=== PATIENT | female | born 1980 | race Caucasian/White ===

== ENCOUNTER 2018-08-10 08:14 | Emergency (ER) | payer MEDICAID, OTHER ==
[~2018-08-10] VITALS: Ht 165.1 cm; Wt 67.0 kg
[2018-08-10] MEDS ORDERED: ONDANSETRON 2MG/ML, 2ML ONE ×2 (08:49→12:25)
[2018-08-10] MEDS ORDERED: HYDROmorphone 2 MG/ML, 1ML ONE ×4 (08:49→12:32)
[2018-08-10] MEDS: HYDROmorphone 2 MG/ML, 1ML IVPush PRN ×2 (08:52→10:01)
[2018-08-10] MEDS ORDERED: ALBU90AE INH (08:54)
[2018-08-10] MEDS ORDERED: TOPI200T25 PO (08:54)
[2018-08-10] MEDS ORDERED: PARO10TA3 PO (08:54)
[2018-08-10] MEDS ORDERED: ZOLM2.5S INH (08:55)
[2018-08-10] MEDS ORDERED: MULT-516 PO (08:56)
[2018-08-10] MEDS ORDERED: SODIUM CHLORIDE FLUSH 10ML SYR IVF ONE (09:00)
[2018-08-10] MEDS ORDERED: ONDANSETRON 2MG/ML, 2ML IVPush ONE (09:00)
--- NOTE | 2018-08-10 09:07 | NUR ---
PIV STARTED AND BLOOD DRAWN. PATIENT MEDICATED WITH ZOFRAN AND DILAUDID. CONTINUOUS SPO2 APPLIED. BP CUFF APPLIED. WARM BLANKET GIVEN. PATIENT RESTING WITH NO COMPLAINTS. CALL BUTTON IN LAP.
[2018-08-10 09:14] LABS: BASOPHILS # (AUTO) 0.06 x10^3/uL (0-0.1); BASOPHILS % (AUTO) 1 % (0-1); EOSINOPHILS # (AUTO) 0.39 x10^3/uL (0-0.4); EOSINOPHILS % (AUTO) 3 % (1-7); LYMPHOCYTES % (AUTO) 22 % (22-44); MD NO; MEAN CORPUSCULAR HEMOGLOBIN 30.9 pg (27.0-34.8); MEAN CORPUSCULAR HGB CONC 32.1 g/dL (32.4-35.8); MEAN CORPUSCULAR VOLUME 96.1 fL (80-100); MEAN PLATELET VOLUME 8.6 fL (7.4-10.4); MONOCYTES # (AUTO) 0.42 x10^3/uL (0.2-0.8); MONOCYTES % (AUTO) 4 % (2-9); NEUTROPHILS # (AUTO) 8.25 x10^3/uL (1.8-6.8); NEUTROPHILS % (AUTO) 71 % (42-75); PLATELET COUNT 254 x10^3/uL (130-400); RED BLOOD COUNT 4.98 x10^6/uL (3.82-5.3); RED CELL DISTRIBUTION WIDTH 13.5 % (9.6-15.2)
[2018-08-10 09:23] LABS: CHLORIDE 109 mmol/L (98-107)
--- NOTE | 2018-08-10 09:45 | NUR ---
TASK RN - PT AMBULATORY TO BATHROOM WITH STEADY GAIT FOR URINE SAMPLE.
[2018-08-10 10:01] LABS: ALBUMIN 4.5 g/dL (3.4-5.0); CALCIUM 9.1 mg/dL (8.5-10.1)
--- NOTE | 2018-08-10 10:03 | NUR ---
PT MEDICATED WITH SECOND DOSE OF DILAUDID. PT RESTING WITH NO COMPLAINTS.
[2018-08-10 10:04] LABS: ALANINE AMINOTRANSFERASE 31 U/L (12-78); CREATININE 1.16 mg/dL (0.55-1.02)
[2018-08-10 10:05] LABS: ALKALINE PHOSPHATASE 104 U/L (45-117); BILIRUBIN,TOTAL 0.4 mg/dL (0.2-1.0); TOTAL PROTEIN 7.8 g/dL (6.4-8.2)
[2018-08-10 10:07] LABS: ANION GAP 9 mmol/L (5-15)
[2018-08-10 10:26] LABS: MICROSCOPIC AUTO
[2018-08-10 10:30] LABS: CULTURE INDICATED? YES
[2018-08-10] MEDS ORDERED: HYDROmorphone 2 MG/ML, 1ML IVPush PRN (11:30)
[2018-08-10 12:03] LABS: MICROSCOPIC AUTO
[2018-08-10 12:08] VITALS: BP 118/74
[2018-08-10 12:18] LABS: CULTURE INDICATED? YES
--- NOTE | 2018-08-10 13:45 | NUR ---
Patient/Caregiver given discharge instructions and they have confirmed that they understand the instructions. Patient ambulatory with steady gait.
== END 2018-08-10 14:12 | disposition home or self-care (01) ==
LOC: ED 12:42
DX: N13.2 Hydronephrosis with renal and ureteral calculous obstruction (principal); Z90.710 Acquired absence of both cervix and uterus
CPT/HCPCS: 36415; 74176; 80053; 81001; 85025; 87086; 96374; 96375; 96376; 99284; J1170; J2405

== ENCOUNTER 2018-08-29 16:16 | Observation (INO) | payer OTHER ==
[~2018-08-29] VITALS: Ht 165.1 cm; Wt 71.2 kg
[~2018-08-29 16:16] MED LIST: ALBU90AE INH; MULT-516 PO; PARO10TA3 PO; TOPI200T25 PO; ZOLM2.5S INH
[2018-08-29] MEDS ORDERED: HYDROmorphone 2 MG/ML, 1ML ONE ×2 (17:16→19:24)
[2018-08-29] MEDS: HYDROmorphone 2 MG/ML, 1ML IVPush PRN ×2 (17:24→17:58)
[2018-08-29 17:25] LABS: BASOPHILS # (AUTO) 0.05 x10^3/uL (0-0.1); BASOPHILS % (AUTO) 1 % (0-1); EOSINOPHILS # (AUTO) 0.26 x10^3/uL (0-0.4); EOSINOPHILS % (AUTO) 3 % (1-7); LYMPHOCYTES # (AUTO) 1.83 x10^3/uL (1-3.4); LYMPHOCYTES % (AUTO) 18 % (22-44); MD NO; MEAN CORPUSCULAR HEMOGLOBIN 31.9 pg (27.0-34.8); MEAN CORPUSCULAR HGB CONC 33.3 g/dL (32.4-35.8); MEAN CORPUSCULAR VOLUME 95.9 fL (80-100); MEAN PLATELET VOLUME 8.4 fL (7.4-10.4); MONOCYTES % (AUTO) 6 % (2-9); NEUTROPHILS # (AUTO) 7.42 x10^3/uL (1.8-6.8); NEUTROPHILS % (AUTO) 73 % (42-75); PLATELET COUNT 220 x10^3/uL (130-400); RED BLOOD COUNT 4.36 x10^6/uL (3.82-5.3); RED CELL DISTRIBUTION WIDTH 13.3 % (9.6-15.2)
[2018-08-29] MEDS ORDERED: SODIUM CHLORIDE FLUSH 10ML SYR IVF ONE (17:30)
[2018-08-29 17:37] LABS: ALANINE AMINOTRANSFERASE 25 U/L (12-78); ANION GAP 5 mmol/L (5-15); CALCIUM 9.1 mg/dL (8.5-10.1); CHLORIDE 112 mmol/L (98-107)
[2018-08-29 17:40] LABS: ALKALINE PHOSPHATASE 81 U/L (45-117); BILIRUBIN,TOTAL 0.5 mg/dL (0.2-1.0); TOTAL PROTEIN 7.2 g/dL (6.4-8.2)
[2018-08-29 18:16] LABS: MICROSCOPIC INDICATED
[2018-08-29] MEDS ORDERED: ONDANSETRON 2MG/ML, 2ML ONE ×3 (18:17→21:53)
[2018-08-29] MEDS ORDERED: ONDANSETRON 2MG/ML, 2ML IVPush ONE ×2 (18:30→19:30)
[2018-08-29 18:36] LABS: CULTURE INDICATED? YES
--- NOTE | 2018-08-29 19:04 | NUR ---
report from mary carmen assumed care of pt, pt in nad
[2018-08-29] MEDS ORDERED: HYDROmorphone 2 MG/ML, 1ML IV ONE (19:30)
--- NOTE | 2018-08-29 19:49 | NUR ---
medicated for pain, md at bedside discussing poc
--- NOTE | 2018-08-29 20:06 | NUR ---
report to or at this time
[2018-08-29] MEDS ORDERED: MIDAZOLAM 1 MG/ML, 2ML ONE (20:10)
--- NOTE | 2018-08-29 20:10 | NUR ---
pt to or with or tech
[2018-08-29] MEDS ORDERED: FENTANYL PF 250 MCG/5ML ONE (20:11)
[2018-08-29] MEDS ORDERED: ROCURONIUM 10MG/ML,5ML ONE (21:12)
[2018-08-29] MEDS ORDERED: METOCLOPRAMIDE 5 MG/ML, 2ML ONE (21:12)
[2018-08-29] MEDS ORDERED: KETOROLAC 30 MG/1 ML ONE (21:12)
[2018-08-29] MEDS ORDERED: SUCCINYLCHOLINE 20 MG/ML, 10ML ONE (21:12)
[2018-08-29] MEDS ORDERED: EPHEDRINE 50 MG/ML, 1ML ONE (21:12)
[2018-08-29] MEDS ORDERED: PROPOFOL 10 MG/ML, 20ML ONE (21:53)
[2018-08-29] MEDS ORDERED: DEXAMETHASONE 4 MG/ML, 1ML ONE (21:53)
[2018-08-29] MEDS ORDERED: CEFAZOLIN 1,000 MG ONE (21:53)
[2018-08-29] MEDS ORDERED: OXYC5TAB2 PO (22:37)
[2018-08-29] MEDS ORDERED: POLY17PO5 PO (22:38)
[2018-08-29] MEDS ORDERED: PHEN100T90 PO (22:39)
[2018-08-29 23:11] VITALS: BP 140/95
== END 2018-08-29 23:30 | disposition home or self-care (01) ==
LOC: ED 17:10 → 4NOR 22:30 → ED 22:33 → 4NOR 22:34
PROVIDERS: ADMIT Student in an Organized Health Care Education/Training Program; ATTEND Student in an Organized Health Care Education/Training Program
DX: N13.2 Hydronephrosis with renal and ureteral calculous obstruction (principal); N23 Unspecified renal colic
CPT/HCPCS: 36415; 52353; 76770; 80053; 81001; 82360; 83690; 85025; 87086; 88300; 96374; 96375; 96376; 99284; C1769; G0378; J0330; J0690; J1100; J1170; J1885; J2250; J2405; J2704; J2765; J3010